=== PATIENT | female | born 1940 | race Caucasian/White ===

== ENCOUNTER 2019-09-06 09:35 | Day surgery (SDC) | payer OTHER ==
[~2019-09-06] VITALS: Ht 157.5 cm; Wt 69.9 kg
[2019-09-06] MEDS ORDERED: ROCURONIUM BROMIDE 10 MG/ML (ZEMURON) IV ONE (10:35)
[2019-09-06] MEDS ORDERED: fentaNYL CITRATE/PF 100 MCG/2 ML AMP IVP ONE (10:35)
[2019-09-06] MEDS ORDERED: HEPARIN SODIUM, PORCINE 10,000 UNITS/ 10 ML VIAL MC ONE (10:35)
[2019-09-06] MEDS ORDERED: NS 100 ML BAG IV ONE (10:35)
[2019-09-06] MEDS ORDERED: LR 1,000 ML IV.SOLN IV ONE (10:35)
[2019-09-06] MEDS ORDERED: LEVOFLOXACIN 500 MG/D5W 100 ML PIGGYBACK IV ONE (10:35)
[2019-09-06] MEDS ORDERED: SEVOFLURANE 15 MIN GAS INH ONE (10:35)
[2019-09-06] MEDS ORDERED: ePHEDrine sulfate 50 MG/ML VIAL IVP ONE (10:35)
[2019-09-06] MEDS ORDERED: ONDANSETRON HCL 4 MG/2 ML VIAL IVP ONE (10:35)
[2019-09-06] MEDS ORDERED: MIDAZOLAM HCL 5 MG/5 ML VIAL IVP ONE (10:35)
[2019-09-06] MEDS ORDERED: PROPOFOL 200MG/ 20ML VIAL (DIPRIVAN) IV ONE (10:35)
[2019-09-06] MEDS ORDERED: LR 1,000 ML IV SCH (11:05)
[2019-09-06] MEDS ORDERED: METOCLOPRAMIDE HCL 10 MG/2 ML VIAL IVP PRN (11:15)
[2019-09-06] MEDS ORDERED: MEPERIDINE HCL/PF 25 MG/ML DISP.SYRIN IVP PRN (11:15)
[2019-09-06] MEDS ORDERED: MEPERIDINE HCL/PF 50 MG/ML AMP IVP PRN ×2 (11:15)
[2019-09-06] MEDS ORDERED: HYDROcodone/ACETAMIN 5-325 MG TAB (NORCO/ VICODIN) PO PRN (11:30)
[2019-09-06 12:36] VITALS: BP_SYST 115
== END 2019-09-06 14:00 | disposition home or self-care (01) ==
LOC: SDS 09:35
PROVIDERS: ATTEND Surgery
DX: Z45.2 Encounter for adjustment and management of vascular access device (principal); C50.911 Malignant neoplasm of unspecified site of right female breast
CPT/HCPCS: 36561; 71045; C1788; J1644; J1956; J2250; J2405; J2704; J3010; J7120